=== PATIENT | male | born 1970 | race Caucasian/White ===

== ENCOUNTER 2023-02-09 20:43 | Inpatient (IN) ==
[2023-02-09] MEDS ORDERED: SODIUM CHLORIDE 0.9% 1000ML 1,000 ML IV ONE (22:01)
[2023-02-09] MEDS ORDERED: METOCLOPRAMIDE HCL INJ 5 MG/ML 2 ML VIAL IV STA (22:08)
[2023-02-09] MEDS ORDERED: diphenhydrAMINE 50 MG/ML VIAL IV STA (22:08)
--- NOTE | 2023-02-09 22:09 | Emergency Department Note ---
Impression & Plan Headache ADMIT ED Provider Note HPI: The patient is a 52-year-old gentleman who presents emergency department with a chief complaint of headache and fever earlier today. Patient states that throughout the day he has had progressively worsening headache, states that he had a fever at 1 point today to 103 Fahrenheit. Patient states he has a history of aseptic meningitis that was diagnosed in 2015, he states his symptoms feel similar to this episode. On arrival here to the ED the patient appears uncomfortable, he is afebrile, he does not have any focal deficits. ROS: - Per HPI Differential Diagnosis: Bacterial meningitis, viral meningitis, migraine co mplex, Lyme disease, Anaplasma infection, COVID-19 infection, influenza A infection, amongst other potential pathologies. *Outpatient medications and allergy history reviewed. *Pertinent external medical records reviewed. PE: General: Alert HEENT: Normocephalic, trachea midline, near full range of motion of the cervical spine is appreciated with some limitation with full flexion of the neck Eyes: Extraocular eye movement is intact, no scleral erythema Pulmonary: Clear to auscultation bilaterally, no wheezing Cardio: Regular rate and rhythm GI: Abdomen is soft to palpation : No suprapubic tenderness MSK: No evidence of trauma or malformation of the extremities, no edema Skin: No evidence of rash Neuro: Alert, no focal deficits Psychiatric: Cooperative scientific research associate: (As interpreted by myself): - An order was placed for continuous cardiac monitoring - Patient was noted to be in sinus rhythm with a rate of 70 LUMBAR PUNCTURE: Verbal consent was obtained from the patient following discussion of risk and benefits of the procedure. Patient position: Seated position with lumbar flexion Utilizing the bilateral ASIS as a landmark, L3/L4 interspace was identified, site was then prepped with antiseptic, and draped, utilizing sterile technique. Local anesthesia applied with 1% lidocaine without epinephrine, 3 cc total. Size 22G spinal needle was advanced at the identified interspace with stylet in place. Needle stylet was removed following needle advancement. Clear CSF was successfully obtained and collected in 4 separate sample tubes, approximately 1cc in each tube was collected. Needle stylette was then replaced and the spinal needle was gently withdrawn. Patient tolerated the procedure well. Interventions provided in ED: -IV Reglan, IV Benadryl, IV morphine, IV ceftriaxone, IV vancomycin, IV fluid bolus Medical Decision Making: Shortly after the patient arrived IV was established lab work ordered, patient was maintained on jack winder. Patient was ordered IV fluid bolus as well as IV Reglan and IV Benadryl for his symptoms. Lab work shows a leukocytosis of 12.01, hemoglobin is normal, platelet count is normal, CMP does not show any critical findings, procalcitonin is low. CT imaging of the head was obtained that does not show any evidence of any acute intracranial process. Lyme disease testing is negative, Anaplasma testing is negative. COVID-19 and influenza testing are both negative. On my reassessment patient still appears uncomfortable, he states his headache is improved but he still does have a headache. He was given a dose of IV morphine and shortly after this he stated his headache was "much better". I did discuss with the patient risk versus benefit of lumbar puncture at this time for further diagnostic value, following discussion with the patient and his at the bedside they would like to proceed with lumbar puncture, discussed risk and benefit and procedure was performed, please see procedure note for details. Patient tolerated the procedure well. While awaiting results of CSF values, CSF protein value did result elevated at 30.5, glucose level is normal at 57, I contacted the lab and results on cell differential are still pending as many white blood cell counts were noted per manager labor delivery. Manual differential is pending. I discussed this with the patient and his , given these findings in addition to the patient's headache and leukocytosis he will be treated prophylactically with vancomycin and ceftriaxone while awaiting the remainder of his CSF lab values and cultures. Patient is in agreement for admission at this time and initiation of prophylactic antibiotics. Case was discussed with the on-call hospitalist, Dr. Albert, who accepted the patient to the inpatient service for further management. Consultants: HospitalistDr. Albert Disposition discussion held by myself with: Patient and at bedside Diagnosis: 1. Headache, acute, not intractable 2. Fever by history 3. Neck stiffness, acute 4. Elevated CSF protein level Disposition: ADMIT Polo Yañez DO Emergency Medicine Past Med/Surg History Medical History (Updated 02/10/23 @ 02:28 by Polo Yañez DO) Allergic rhinitis Meningitis Tinnitus Surgical History No significant past surgical history Family History Other No pertinent family history Social History Smoking Status: Never smoker Tobacco Type: Cigarettes Hx Alcohol Use: Yes Preferred Language: Citizen Of [place] marital status: Current Living Situation: Spouse current occupational status: employed Feels Safe at Home: Yes Allergies Allergies Allergy/AdvReac Type Severity Reaction Status Date / Time No Known Allergies Allergy Unverified 02/09/23 20:55 Home Meds Home Medications Medication Instructions Recorded Confirmed No Known Home Medications 07/07/21 02/09/23 Results & Data (ED) Vital Signs Vital Signs - 24 hr 02/09/23 20:48 02/09/23 21:51 02/09/23 22:00 Temperature 37.0 C Temperature Source Temporal Artery Scan Pulse Rate 95 H 80 65 Pulse Rate from SpO2 Sensor 68 Respiratory Rate 18 18 Respiratory Effort / Characteristics Non-Labored Spontaneous Respiratory Depth Normal Respiratory Pattern Regular Blood Pressure 174/94 H 157/95 H Blood Pressure Mean 120 115 Blood Pressure Position Sitting Pulse Oximetry 96 94 Oxygen Delivery Method Room Air Room Air Sepsis Recent Fever Within 48 Hours Yes Sepsis New/Unexplained Change in Mental Status N/A Sepsis Action Taken by Nursing No Action Required Laboratory Data 02/09/23 21:50 02/09/23 21:50 Lab Results 02/09/23 02/09/23 02/09/23 Range/Units 21:50 21:50 21:50 WBC 12.01 H (4.8-10.8) K/ul RBC 5.27 (4.70-6.10) M/uL Hgb 16.9 (14.0-18.0) g/dl Hct 48.1 (42.0-52.0) % MCV 91.3 (80.0-100.0) fL MCH 32.1 (25.0-34.0) pg MCHC 35.1 (32.0-36.0) g/dL RDW Std Deviation 39.4 (36.4-46.3) fL RDW Coeff of Nichelle 11.9 (11.5-14.5) % Plt Count 233 (130-400) K/uL MPV 10.4 (9.4-12.4) fL Immature Gran % (Auto) 0.2 % Neut % (Auto) 85.4 % Lymph % (Auto) 9.7 % Pierce % (Auto) 4.3 % Eos % (Auto) 0.1 % Baso % (Auto) 0.3 % Neut # (Auto) 10.25 H (1.40-6.50) K/uL Lymph # (Auto) 1.17 L (1.20-3.40) K/uL Pierce # (Auto) 0.52 (0.11-0.59) K/uL Eos # (Auto) 0.01 (0.00-0.50) K/uL Baso # (Auto) 0.04 (0.00-0.20) K/uL Immature Gran # (Auto) 0.02 (0.01-0.20) K/uL Sodium 136 (136-145) mmol/L Potassium 4.0 (3.5-5.1) mmol/L Chloride 102 (98-107) mmol/L Carbon Dioxide 27 (21-32) mmol/L Anion Gap 7 (3-11) BUN 11 (6-23) mg/dl Creatinine 0.97 (0.6-1.4) mg/dl Est Cr Clr Drug Dosing 111.8 ml/min Est GFR ( Amer) 104.3 ml/min Est GFR (Non-Af Amer) 90.0 ml/min BUN/Creatinine Ratio 11.3 (10-20) Glucose 105 H (70-99(Fasting)) mg/dl Calcium 9.4 (8.6-10.3) mg/dl Total Bilirubin 1.7 H (0.2-1.0) mg/dl AST 19 (13-39) U/L ALT 18 (7-52) U/L Alkaline Phosphatase 65 (34-104) U/L Total Protein 7.9 (6.0-8.3) gm/dl Albumin 5.0 (3.4-5.0) gm/dl Globulin 2.9 (2.5-4.0) gm/dl Albumin/Globulin Ratio 1.7 (0.9-2) Procalcitonin (0-0.5) ng/ml Fluid Comment CSF Chemistry Tube # CSF Glucose (40-70) mg/dl CSF Total Protein (15-45) mg/dl Anaplasma Smear See Comment Babesia Smear See Comment Lyme Disease IgG Ab Cancelled Lyme Disease IgM Ab Cancelled SARS-CoV-2 (PCR) (Negative) Influenza Type A (PCR) (Neg) Influenza Type B (PCR) (Neg) RSV (RT-PCR) (Neg) 02/09/23 02/09/23 02/10/23 Range/Units 21:50 21:50 01:15 WBC (4.8-10.8) K/ul RBC (4.70-6.10) M/uL Hgb (14.0-18.0) g/dl Hct (42.0-52.0) % MCV (80.0-100.0) fL MCH (25.0-34.0) pg MCHC (32.0-36.0) g/dL RDW Std Deviation (36.4-46.3) fL RDW Coeff of Nichelle (11.5-14.5) % Plt Count (130-400) K/uL MPV (9.4-12.4) fL Immature Gran % (Auto) % Neut % (Auto) % Lymph % (Auto) % Pierce % (Auto) % Eos % (Auto) % Baso % (Auto) % Neut # (Auto) (1.40-6.50) K/uL Lymph # (Auto) (1.20-3.40) K/uL Pierce # (Auto) (0.11-0.59) K/uL Eos # (Auto) (0.00-0.50) K/uL Baso # (Auto) (0.00-0.20) K/uL Immature Gran # (Auto) (0.01-0.20) K/uL Sodium (136-145) mmol/L Potassium (3.5-5.1) mmol/L Chloride (98-107) mmol/L Carbon Dioxide (21-32) mmol/L Anion Gap (3-11) BUN (6-23) mg/dl Creatinine (0.6-1.4) mg/dl Est Cr Clr Drug Dosing ml/min Est GFR ( Amer) ml/min Est GFR (Non-Af Amer) ml/min BUN/Creatinine Ratio (10-20) Glucose (70-99(Fasting)) mg/dl Calcium (8.6-10.3) mg/dl Total Bilirubin (0.2-1.0) mg/dl AST (13-39) U/L ALT (7-52) U/L Alkaline Phosphatase (34-104) U/L Total Protein (6.0-8.3) gm/dl Albumin (3.4-5.0) gm/dl Globulin (2.5-4.0) gm/dl Albumin/Globulin Ratio (0.9-2) Procalcitonin < 0.05 (0-0.5) ng/ml Fluid Comment CSF Chemistry Tube # CSF Glucose (40-70) mg/dl CSF Total Protein (15-45) mg/dl Anaplasma Smear Babesia Smear Lyme Disease IgG Ab Negative Lyme Disease IgM Ab Negative SARS-CoV-2 (PCR) NEGATIVE (Negative) Influenza Type A (PCR) Negative (Neg) Influenza Type B (PCR) Negative (Neg) RSV (RT-PCR) Negative (Neg) 02/10/23 Range/Units 01:15 WBC (4.8-10.8) K/ul RBC (4.70-6.10) M/uL Hgb (14.0-18.0) g/dl Hct (42.0-52.0) % MCV (80.0-100.0) fL MCH (25.0-34.0) pg MCHC (32.0-36.0) g/dL RDW Std Deviation (36.4-46.3) fL RDW Coeff of Nichelle (11.5-14.5) % Plt Count (130-400) K/uL MPV (9.4-12.4) fL Immature Gran % (Auto) % Neut % (Auto) % Lymph % (Auto) % Pierce % (Auto) % Eos % (Auto) % Baso % (Auto) % Neut # (Auto) (1.40-6.50) K/uL Lymph # (Auto) (1.20-3.40) K/uL Pierce # (Auto) (0.11-0.59) K/uL Eos # (Auto) (0.00-0.50) K/uL Baso # (Auto) (0.00-0.20) K/uL Immature Gran # (Auto) (0.01-0.20) K/uL Sodium (136-145) mmol/L Potassium (3.5-5.1) mmol/L Chloride (98-107) mmol/L Carbon Dioxide (21-32) mmol/L Anion Gap (3-11) BUN (6-23) mg/dl Creatinine (0.6-1.4) mg/dl Est Cr Clr Drug Dosing ml/min Est GFR ( Amer) ml/min Est GFR (Non-Af Amer) ml/min BUN/Creatinine Ratio (10-20) Glucose (70-99(Fasting)) mg/dl Calcium (8.6-10.3) mg/dl Total Bilirubin (0.2-1.0) mg/dl AST (13-39) U/L ALT (7-52) U/L Alkaline Phosphatase (34-104) U/L Total Protein (6.0-8.3) gm/dl Albumin (3.4-5.0) gm/dl Globulin (2.5-4.0) gm/dl Albumin/Globulin Ratio (0.9-2) Procalcitonin (0-0.5) ng/ml Fluid Comment CSF Chemistry Tube # 1 CSF Glucose 57 (40-70) mg/dl CSF Total Protein 130.5 H (15-45) mg/dl Anaplasma Smear Babesia Smear Lyme Disease IgG Ab Lyme Disease IgM Ab SARS-CoV-2 (PCR) (Negative) Influenza Type A (PCR) (Neg) Influenza Type B (PCR) (Neg) RSV (RT-PCR) (Neg) Administered Medications Discontinued Medications Diphenhydramine HCl (Diphenhydramine 50 Mg/Ml Vial) 25 mg IV NOW STA Stop: 02/09/23 22:09 Last Admin: 02/09/23 22:26 Dose: 25 mg Documented By: SHER Sodium Chloride (Nss 1000ml) 1,000 mls @ 999 mls/hr IV .Q1H1M ONE Stop: 02/09/23 23:01 Last Admin: 02/09/23 22:26 Dose: 999 mls/hr Documented By: SHER Metoclopramide HCl (Metoclopramide Hcl Inj 5 Mg/Ml 2 Ml Vial) 10 mg IV NOW STA Stop: 02/09/23 22:09 Last Admin: 02/09/23 22:26 Dose: 10 mg Documented By: SHER Morphine Sulfate (Morphine Sulfate 4 Mg/Ml 1 Ml Carp\\Vial) 4 mg IV NOW STA Stop: 02/09/23 23:19 Last Admin: 02/09/23 23:26 Dose: 4 mg Documented By: EMILIE Imaging Data Radiologist's Impression: Head CT 02/09/23 22:08 Exam(s): CT HEAD Without Contrast EXAM: CT Head Without Intravenous Contrast CLINICAL HISTORY: Reason for exam: DOMÍNGUEZ. TECHNIQUE: Axial computed tomography images of the head/brain without intravenous contrast. CTDI is 37.01 mGy and DLP is 625.8 mGy-cm. Automated exposure control was utilized for the study. A dose lowering technique was utilized adhering to the principles of ALARA. COMPARISON: No relevant prior studies available. FINDINGS: No acute intracranial hemorrhage. No midline shift or mass effect. The territorial molina-white matter differentiation is maintained throughout. The ventricles and sulci are commensurate with age. The visualized orbits appear grossly unremarkable. The calvarium is intact. The visualized paranasal sinuses and mastoid air cells are grossly clear. IMPRESSION: No acute intracranial hemorrhage, midline shift, or mass effect. Electronically signed by: Carlos Pastor MD 02/09/23 23:28 PM Discharge Plan Visit Data Chief Complaint: Illness Stated Complaint: FEVER,HEADACHE,STIFF NECK,BALANCE ISSUES, ED Provider: Polo Yañez Discharge Problem: Headache Forms Stand Alone Forms: My [facility] [employer] Prescriptions Prescriptions: No Action No Known Home Medications Referrals Referrals: Sivakumar Obrien DO [Primary Care Provider] -
[2023-02-09 22:36] LABS: Basophils # (auto) 0.04 K/uL (0.00-0.20); Basophils % (auto) 0.3 %; Eosinophils # (auto) 0.01 K/uL (0.00-0.50); Eosinophils % (auto) 0.1 %; Hematocrit (blood only) 48.1 % (42.0-52.0); Hemoglobin 16.9 g/dl (14.0-18.0); Immature Granulocytes # (auto) 0.02 K/uL (0.01-0.20); Immature Granulocytes % (auto) 0.2 %; Lymphocytes # (auto) 1.17 K/uL (1.20-3.40); Lymphocytes % (auto) 9.7 %; Mean Corpuscular Hemoglobin 32.1 pg (25.0-34.0); Mean Corpuscular Hgb Conc 35.1 g/dL (32.0-36.0); Mean Corpuscular Volume 91.3 fL (80.0-100.0); Mean Platelet Volume 10.4 fL (9.4-12.4); Monocytes # (auto) 0.52 K/uL (0.11-0.59); Monocytes % (auto) 4.3 %; Neutrophils # (auto) 10.25 K/uL (1.40-6.50); Neutrophils % (auto) 85.4 %; Platelet Count 233 K/uL (130-400); RDW Coefficient of Variation 11.9 % (11.5-14.5); RDW Standard Deviation 39.4 fL (36.4-46.3); Red Blood Count 5.27 M/uL (4.70-6.10); White Blood Count 12.01 K/ul (4.8-10.8)
[2023-02-09 22:43] LABS: Albumin Globulin Ratio 1.7 (0.9-2); BUN Creatinine Ratio 11.3 (10-20); Bilirubin,Total 1.7 mg/dl (0.2-1.0); Calcium 9.4 mg/dl (8.6-10.3); Creatinine Clr Calc Pharmacy 111.8 ml/min; Est GFR (African American) 104.3 ml/min; Globulin 2.9 gm/dl (2.5-4.0); Total Protein 7.9 gm/dl (6.0-8.3)
[2023-02-09 22:48] LABS: Influenza A virus by PCR Negative (Neg); Influenza B virus by PCR Negative (Neg); RSV by PCR Negative (Neg); SARS CoV2 RNA(COVID-19) Ceph NEGATIVE (Negative)
[2023-02-09 22:54] LABS: Procalcitonin < 0.05 ng/ml (0-0.5)
[2023-02-09 23:02] LABS: Lyme Ab IgG w/WB Rflx Negative (Negative); Lyme Ab IgM w/WB Rflx Negative (Negative)
[2023-02-09] MEDS ORDERED: MoRPHine SULFATE 4 MG/ML 1 ML CARP\\VIAL IV STA (23:18)
--- NOTE | 2023-02-09 23:28 | CT Scan Report ---
Exam(s): CT HEAD Without Contrast EXAM: CT Head Without Intravenous Contrast CLINICAL HISTORY: Reason for exam: DOMÍNGUEZ. TECHNIQUE: Axial computed tomography images of the head/brain without intravenous contrast. CTDI is 37.01 mGy and DLP is 625.8 mGy-cm. Automated exposure control was utilized for the study. A dose lowering technique was utilized adhering to the principles of ALARA. COMPARISON: No relevant prior studies available. FINDINGS: No acute intracranial hemorrhage. No midline shift or mass effect. The territorial molina-white matter differentiation is maintained throughout. The ventricles and sulci are commensurate with age. The visualized orbits appear grossly unremarkable. The calvarium is intact. The visualized paranasal sinuses and mastoid air cells are grossly clear. IMPRESSION: No acute intracranial hemorrhage, midline shift, or mass effect. Electronically signed by: Carlos Pastor MD 02/09/23 23:28 PM
[2023-02-10 01:52] LABS: Total Protein CSF 130.5 mg/dl (15-45)
[2023-02-10] MEDS ORDERED: cefTRIAXone SODIUM 2,000 MG/70 ML BAG IV STA (02:16)
[2023-02-10] MEDS ORDERED: VANCOMYCIN CONSULT ACTIVE PRN ×2 (02:19→13:50)
[2023-02-10] MEDS ORDERED: VANCOMYCIN HCL 2,000 MG in SODIUM CHLORIDE 0.9% 500 ML IV ONE (02:19)
[2023-02-10 02:32] LABS: Appearance CSF Clear; CSF Count Tube # 3; CSF Xanthrochromic No xanthochromia; Color CSF Colorless
[2023-02-10 02:50] LABS: Mononuclear WBC CSF Manual 92 %
[2023-02-10 02:51] LABS: Polynuclear WBC CSF Manual 8 %
--- NOTE | 2023-02-10 02:55 | History & Physical Report ---
Date of Service February 10, 2023 Assessment & Plan (1) Meningitis: Plan: Recurrent HSV meningitis Possible sepsis secondary to above Medical telemetry IV Acyclovir ID consult Re: Recurrent HSV meningitis DVT prophylaxis. Lovenox subcu Full code Text document was generated using [employer] voice recognition software. It may contain grammatical or spelling errors. Kindly contact undersigned for clarification of any documentation item in question. History of Present Illness Chief Complaint: Headache, body aches Primary Care Provider: Sivakumar Obrien DO History obtained from patient, family, and records. Medical history significant for HSV-2 infection. Last confinement 2014 for aseptic meningitis. HSV-2 DNA detected in CSF. Patient completed Acyclovir course following ID recommendation. 2 nights ago, patient noted generalized joint achiness. No chest pain, no SOB, no cough. No rashes noted. No known sick contacts. 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 Patient woke up yesterday morning with a pounding headache. Worsening symptoms and some neck pain throughout the day. Patient had to go home from work. Temperature elevation of 103 at home last night. Dizziness described as lightheadedness. No ear discharge. No recent genital HSV attacks. IV ceftriaxone administered at the ER after LP done. 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 Allergies Allergy/AdvReac Type Severity Reaction Status Date / Time No Known Allergies Allergy Unverified 02/09/23 20:55 Home Medications Medication Instructions Recorded Confirmed Type No Known Home Medications 07/07/21 02/09/23 History Past Med/Surg History Medical History (Updated 02/10/23 @ 04:28 by Robert Albert MD) Allergic rhinitis Meningitis Tinnitus Surgical History No significant past surgical history Family History Other No pertinent family history Social History Smoking Status: Never smoker Tobacco Type: Cigarettes Hx Alcohol Use: Yes Preferred Language: [place] marital status: Current Living Situation: Spouse current occupational status: employed Feels Safe at Home: Yes Review of Systems Review of Systems: As per HPI, all other systems reviewed and negative Physical Exam 2 Physical Exam: GENERAL: Comfortable, pleasant, obese, no respiratory distress SKIN: Normal color, warm HEENT: Alopecia, pink palpebral conjunctivae, no ptosis, dry buccal mucosa NECK : Limited neck flexion, minimal cervical tenderness CHEST : CTA, no tenderness HEART : RRR, no obvious murmurs ABDOMEN: Some distention, nontender EXTREMITIES : No LE swelling/tenderness, no other conspicuous deformities noted NEUROLOGIC : Coherent, no facial asymmetry, no other gross focality Results & Data Results & Data Vital Signs (Past 12 Hours) Vital Signs Temp Pulse Resp BP Pulse Ox O2 Del Method 02/10/23 02:30 91 02/10/23 02:20 94 02/10/23 02:10 93 02/10/23 02:00 93 02/10/23 01:50 91 02/10/23 01:40 93 02/10/23 01:30 93 02/10/23 01:21 98 02/10/23 00:30 95 02/10/23 00:20 95 02/10/23 00:10 94 02/10/23 00:00 95 02/09/23 23:50 95 02/09/23 23:40 94 02/09/23 23:30 95 02/09/23 23:27 97 02/09/23 22:00 65 18 157/95 H 94 Room Air 02/09/23 21:51 80 02/09/23 20:48 37.0 C 95 H 18 174/94 H 96 Room Air Laboratory Results Laboratory Results WBC 12.01 K/ul (4.8-10.8) H 02/09/23 21:50 RBC 5.27 M/uL (4.70-6.10) 02/09/23 21:50 Hgb 16.9 g/dl (14.0-18.0) 02/09/23 21:50 Hct 48.1 % (42.0-52.0) 02/09/23 21:50 MCV 91.3 fL (80.0-100.0) 02/09/23 21:50 MCH 32.1 pg (25.0-34.0) 02/09/23 21:50 MCHC 35.1 g/dL (32.0-36.0) 02/09/23 21:50 RDW Std Deviation 39.4 fL (36.4-46.3) 02/09/23 21:50 RDW Coeff of Nichelle 11.9 % (11.5-14.5) 02/09/23 21:50 Plt Count 233 K/uL (130-400) 02/09/23 21:50 MPV 10.4 fL (9.4-12.4) 02/09/23 21:50 Immature Gran % (Auto) 0.2 % 02/09/23 21:50 Neut % (Auto) 85.4 % 02/09/23 21:50 Lymph % (Auto) 9.7 % 02/09/23 21:50 Coke % (Auto) 4.3 % 02/09/23 21:50 Eos % (Auto) 0.1 % 02/09/23 21:50 Baso % (Auto) 0.3 % 02/09/23 21:50 Neut # (Auto) 10.25 K/uL (1.40-6.50) H 02/09/23 21:50 Lymph # (Auto) 1.17 K/uL (1.20-3.40) L 02/09/23 21:50 Coke # (Auto) 0.52 K/uL (0.11-0.59) 02/09/23 21:50 Eos # (Auto) 0.01 K/uL (0.00-0.50) 02/09/23 21:50 Baso # (Auto) 0.04 K/uL (0.00-0.20) 02/09/23 21:50 Immature Gran # (Auto) 0.02 K/uL (0.01-0.20) 02/09/23 21:50 Sodium 136 mmol/L (136-145) 02/09/23 21:50 Potassium 4.0 mmol/L (3.5-5.1) 02/09/23 21:50 Chloride 102 mmol/L (98-107) 02/09/23 21:50 Carbon Dioxide 27 mmol/L (21-32) 02/09/23 21:50 Anion Gap 7 (3-11) 02/09/23 21:50 BUN 11 mg/dl (6-23) 02/09/23 21:50 Creatinine 0.97 mg/dl (0.6-1.4) 02/09/23 21:50 Est Cr Clr Drug Dosing 111.8 ml/min 02/09/23 21:50 Est GFR ( Amer) 104.3 ml/min 02/09/23 21:50 Est GFR (Non-Af Amer) 90.0 ml/min 02/09/23 21:50 BUN/Creatinine Ratio 11.3 (10-20) 02/09/23 21:50 Glucose 105 mg/dl (70-99(Fasting)) H 02/09/23 21:50 Calcium 9.4 mg/dl (8.6-10.3) 02/09/23 21:50 Total Bilirubin 1.7 mg/dl (0.2-1.0) H 02/09/23 21:50 AST 19 U/L (13-39) 02/09/23 21:50 ALT 18 U/L (7-52) 02/09/23 21:50 Alkaline Phosphatase 65 U/L (34-104) 02/09/23 21:50 Total Protein 7.9 gm/dl (6.0-8.3) 02/09/23 21:50 Albumin 5.0 gm/dl (3.4-5.0) 02/09/23 21:50 Globulin 2.9 gm/dl (2.5-4.0) 02/09/23 21:50 Albumin/Globulin Ratio 1.7 (0.9-2) 02/09/23 21:50 Procalcitonin < 0.05 ng/ml (0-0.5) 02/09/23 21:50 Fluid Comment 02/10/23 01:15 CSF Appearance Clear 02/10/23 01:15 CSF Color Colorless 02/10/23 01:15 Xanthrochromic No xanthochromia 02/10/23 01:15 CSF WBC 373 (0-5) H* 02/10/23 01:15 CSF RBC 2 (0-) 02/10/23 01:15 CSF Cell Count Tube # 3 02/10/23 01:15 CSF Mononuclear WBCs % 92 % 02/10/23 01:15 CSF Polynuclear WBCs % 8 % 02/10/23 01:15 CSF Chemistry Tube # 1 02/10/23 01:15 CSF Glucose 57 mg/dl (40-70) 02/10/23 01:15 CSF Total Protein 130.5 mg/dl (15-45) H 02/10/23 01:15 Anaplasma Smear See Comment 02/09/23 21:50 Babesia Smear See Comment 02/09/23 21:50 Lyme Disease IgG Ab Cancelled 02/09/23 21:50 Lyme Disease IgG Ab Negative (Negative) 02/09/23 21:50 Lyme Disease IgM Ab Cancelled 02/09/23 21:50 Lyme Disease IgM Ab Negative (Negative) 02/09/23 21:50 SARS-CoV-2 (PCR) NEGATIVE (Negative) 02/09/23 21:50 Influenza Type A (PCR) Negative (Neg) 02/09/23 21:50 Influenza Type B (PCR) Negative (Neg) 02/09/23 21:50 RSV (RT-PCR) Negative (Neg) 02/09/23 21:[address] 02/09/23 22:08 Exam(s): CT HEAD Without Contrast EXAM: CT Head Without Intravenous Contrast CLINICAL HISTORY: Reason for exam: DOMÍNGUEZ. TECHNIQUE: Axial computed tomography images of the head/brain without intravenous contrast. CTDI is 37.01 mGy and DLP is 625.8 mGy-cm. Automated exposure control was utilized for the study. A dose lowering technique was utilized adhering to the principles of ALARA. COMPARISON: No relevant prior studies available. FINDINGS: No acute intracranial hemorrhage. No midline shift or mass effect. The territorial molina-white matter differentiation is maintained throughout. The ventricles and sulci are commensurate with age. The visualized orbits appear grossly unremarkable. The calvarium is intact. The visualized paranasal sinuses and mastoid air cells are grossly clear. IMPRESSION: No acute intracranial hemorrhage, midline shift, or mass effect. Electronically signed by: Carlos Pastor MD 02/09/23 23:28 PM
[2023-02-10 03:03] LABS: Cryptococcus neoformans/ga PCR Not Detected (NotDetected); Cytomegalovirus PCR Not Detected (NotDetected); Enterovirus PCR Not Detected (NotDetected); Escherichia coli K1 PCR Not Detected (NotDetected); Haemophilius influenzae PCR Not Detected (NotDetected); Herpes Simplex Virus 1 PCR Not Detected (NotDetected); Human Herpes Virus 6 PCR Not Detected (NotDetected); Human Parechovirus PCR Not Detected (NotDetected); Listeria monocytogenes PCR Not Detected (NotDetected); Neisseria meningitidis PCR Not Detected (NotDetected); Streptococcus agalactiae PCR Not Detected (NotDetected); Streptococcus pneumoniae PCR Not Detected (NotDetected); Varicella Zoster Virus PCR Not Detected (NotDetected)
[2023-02-10] MEDS ORDERED: PROMETHAZINE HCL 12.5 MG in SODIUM CHLORIDE 0.9% 50 ML IV PRN (03:05)
[2023-02-10] MEDS ORDERED: LORazepam 0.5 MG TAB PO PRN (03:05)
[2023-02-10 03:06] LABS: Herpes Simplex Virus 2 PCR DETECTED (NotDetected)
[2023-02-10] MEDS ORDERED: ACYCLOVIR SOD 900 MG in DEXTROSE 5% 250 ML IV STA (03:28)
[2023-02-10] MEDS ORDERED: SODIUM CHLORIDE 0.9% 1000ML 1,000 ML IV STA (03:31)
[2023-02-10] MEDS: ACETAMINOPHEN 325 MG TAB PO PRN (04:42)
[2023-02-10 06:34] LABS: Basophils # (auto) 0.03 K/uL (0.00-0.20); Basophils % (auto) 0.3 %; Eosinophils # (auto) 0.01 K/uL (0.00-0.50); Eosinophils % (auto) 0.1 %; Hematocrit (blood only) 43.6 % (42.0-52.0); Hemoglobin 15.5 g/dl (14.0-18.0); Immature Granulocytes # (auto) 0.03 K/uL (0.01-0.20); Immature Granulocytes % (auto) 0.3 %; Lymphocytes # (auto) 1.25 K/uL (1.20-3.40); Lymphocytes % (auto) 11.2 %; Mean Corpuscular Hemoglobin 32.3 pg (25.0-34.0); Mean Corpuscular Hgb Conc 35.6 g/dL (32.0-36.0); Mean Corpuscular Volume 90.8 fL (80.0-100.0); Mean Platelet Volume 10.4 fL (9.4-12.4); Monocytes # (auto) 0.76 K/uL (0.11-0.59); Monocytes % (auto) 6.8 %; Neutrophils # (auto) 9.13 K/uL (1.40-6.50); Neutrophils % (auto) 81.3 %; Platelet Count 206 K/uL (130-400); RDW Coefficient of Variation 11.7 % (11.5-14.5); RDW Standard Deviation 38.7 fL (36.4-46.3); White Blood Count 11.21 K/ul (4.8-10.8)
[2023-02-10 06:57] LABS: BUN Creatinine Ratio 11.8 (10-20); Calcium 8.6 mg/dl (8.6-10.3); Creatinine Clr Calc Pharmacy 127.6 ml/min; Est GFR (African American) 116.9 ml/min; Est GFR (Non-African American) 100.9 ml/min; Potassium 3.5 mmol/L (3.5-5.1)
[2023-02-10] MEDS: ENOXAPARIN INJ 40 MG/0.4 ML SYR SQ SCH (10:05)
[2023-02-10] MEDS: KETOROLAC TROMETHAMINE 15 MG/ML VIAL IV PRN ×3 (10:29→22:40)
--- NOTE | 2023-02-10 11:59 | Infectious Disease Consult ---
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 For the duration of the visit, the provider was performing the assessment from a different facility than the patient. This includesuse of bluetooth stethoscope forauscultationperformed by the telepresenter that the telemedicine provider can hear if described in the physical exam. Telecommunications Analyst contact information: Please call [facility] . (Phone Number For Physician Use Only) History of Present Illness Reason for Consultation: Recurrent meningitis Attending Physician: Gage Jesus MD History of Present Illness 52 y/o M who presented to [facility]'s emergency department with headache and fever. Patient states that throughout the day he has had progressively worsening headache and with a fever of up to 103 Fahrenheit. Patient states he has a history of aseptic meningitis diagnosed in 2014, A LP has been done and results are pending he has been started on acyclovir(received one dose of ceftriaxone and vancomycin ) Allergies Allergy/AdvReac Type Severity Reaction Status Date / Time No Known Allergies Allergy Unverified 02/09/23 20:55 Home Medications Medication Instructions Recorded Confirmed Type No Known Home Medications 07/07/21 02/09/23 History Patient History Medical History (Updated 02/10/23 @ 04:28 by Robert Albert MD) Allergic rhinitis Meningitis Tinnitus Surgical History No significant past surgical history Family History Other No pertinent family history Social History Smoking Status: Never smoker Tobacco Type: Cigarettes Second Hand Exposure: No; Do You Dip or Chew Tobacco: No; Tobacco Cessation Education Requested by Patient: No Hx Alcohol Use: Yes Alcohol type: beer and hard liquor Hx Substance Use: No Preferred Language: Lebanese Ekg Monitor Tech Required: No Beliefs That Will Affect Care: None marital status: Current Living Situation: Spouse current occupational status: employed Other Information That Helps Us Care for You: No Feels Safe at Home: Yes Safety Concerns: Feels Safe At This Time Assistive Devices: None Results & Data Vital Signs (Past 12 Hours) Vital Signs Pulse Resp BP Pulse Ox 02/10/23 10:00 60 17 94 02/10/23 10:00 136/78 02/10/23 09:07 137/77 02/10/23 09:07 66 17 94 02/10/23 08:00 61 17 94 02/10/23 08:00 113/71 02/10/23 07:18 74 19 95 02/10/23 07:18 126/64 02/10/23 07:00 65 20 93 02/10/23 07:13 63 02/10/23 06:30 66 20 91 02/10/23 06:20 70 19 94 02/10/23 06:10 68 22 91 02/10/23 06:00 66 20 92 02/10/23 05:50 65 21 90 02/10/23 05:40 66 21 91 02/10/23 05:30 71 16 98 02/10/23 05:20 69 21 94 02/10/23 05:10 69 19 95 02/10/23 05:22 73 02/10/23 05:00 64 18 95 02/10/23 04:50 63 18 94 02/10/23 04:41 79 15 95 02/10/23 04:30 93 02/10/23 04:20 97 02/10/23 04:10 94 02/10/23 04:00 95 02/10/23 03:50 96 02/10/23 03:40 98 02/10/23 03:30 96 02/10/23 03:20 93 02/10/23 03:10 93 02/10/23 03:00 96 02/10/23 02:50 96 02/10/23 02:40 93 02/10/23 02:30 91 02/10/23 02:20 94 02/10/23 02:10 93 02/10/23 02:00 93 02/10/23 01:50 91 02/10/23 01:40 93 02/10/23 01:30 93 02/10/23 01:21 98 02/10/23 00:30 95 02/10/23 00:20 95 02/10/23 00:10 94 02/10/23 00:00 95
[2023-02-10] MEDS: ACYCLOVIR SOD 900 MG in DEXTROSE 5% 250 ML IV SCH ×2 (12:17→20:45)
--- NOTE | 2023-02-10 13:51 | Communication Note ---
Date of Service: February 10, 2023 Patient seen and examined at bedside. 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 He is being managed for the following: Recurrent HSV meningitis: LP done before Rocephin administration in the ED which came back positive for HSV-2. Follow-up on the culture results. Patient is started on acyclovir, reports improving symptoms. No more headache. ID consult placed--recommends ampicillin/vancomycin/ceftriaxone until cultures finalized, recommends continuation with acyclovir. DVT prophylaxis: Lovenox subcu Full code Patient's was updated at bedside. On examination: On room air, no BLE edema, heart/lung/abdomen examination fairly WNL. For detailed information on the patient, refer to today's H&P note.
[2023-02-10] MEDS ORDERED: cefTRIAXone SODIUM 2,000 MG in DEXTROSE 5% 50 ML IV SCH (14:00)
[2023-02-10] MEDS ORDERED: AMPICILLIN 2,000 MG in 0.9 % SODIUM CHLORIDE 100 ML IV SCH (14:00)
[2023-02-10] MEDS ORDERED: VANCOMYCIN HCL 2,000 MG in SODIUM CHLORIDE 0.9% 500 ML IV STA (14:13)
[2023-02-10] MEDS ORDERED: oxyCODONE HCL IR 5 MG TAB (IMMEDIATE RELEASE) PO STA (17:32)
[2023-02-10] MEDS: IBUPROFEN 200 MG TAB PO PRN (18:23)
[2023-02-11] MEDS: IBUPROFEN 200 MG TAB PO PRN ×3 (01:08→15:37)
[2023-02-11] MEDS: ACYCLOVIR SOD 900 MG in DEXTROSE 5% 250 ML IV SCH ×3 (05:04→20:34)
[2023-02-11 07:10] LABS: Hematocrit (blood only) 43.4 % (42.0-52.0); Hemoglobin 15.9 g/dl (14.0-18.0); Mean Corpuscular Hemoglobin 33.1 pg (25.0-34.0); Mean Corpuscular Hgb Conc 36.6 g/dL (32.0-36.0); Mean Corpuscular Volume 90.2 fL (80.0-100.0); Mean Platelet Volume 10.6 fL (9.4-12.4); Platelet Count 208 K/uL (130-400); RDW Coefficient of Variation 11.8 % (11.5-14.5); RDW Standard Deviation 38.7 fL (36.4-46.3); Red Blood Count 4.81 M/uL (4.70-6.10); White Blood Count 6.55 K/ul (4.8-10.8)
[2023-02-11 07:46] LABS: BUN Creatinine Ratio 15.6 (10-20); Calcium 8.8 mg/dl (8.6-10.3); Creatinine Clr Calc Pharmacy 121.6 ml/min; Est GFR (African American) 114.2 ml/min; Est GFR (Non-African American) 98.5 ml/min; Magnesium 2.2 mg/dl (1.7-2.4); Phosphorus 2.8 mg/dl (2.5-4.9)
[2023-02-11] MEDS: ADVANCED PROBIOTIC 1250 MG CAPSULE PO SCH (08:36)
[2023-02-11] MEDS: ENOXAPARIN INJ 40 MG/0.4 ML SYR SQ SCH (08:36)
--- NOTE | 2023-02-11 15:44 | Hospitalist Progress Note ---
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 He is being managed for the following: Recurrent HSV meningitis:LP done before Rocephin administration in the ED which came back positive for HSV-2. Follow-up on the culture results. Patient is started on acyclovir 02/10, reports improving symptoms. Had headache yesterday evening, continue symptomatic management. ID consult placed--recommends continuation with acyclovir. Await further recommendation. DVT prophylaxis:Lovenox subcu Full code Patient provided with information on viral meningitis. Disposition: Pending clearance from ID. Admission and Anticipated Discharge Date Admission Date: February 10, 2023 Subjective Patient is seen and examined at bedside as a follow-up of recurrent HSV meningitis. Patient was lying in bed, on room air, NAD, reports having headache since yesterday afternoon until midnight last night, continue with symptomatic management, denies any visual changes or any weakness. Reports eating okay in the morning. Denies any chest pain/fever/palpitations/belly pain. Physical Exam Physical Exam: GENERAL: Alert and oriented x3. NAD, on RA. HEENT: No pallor, no icterus. Pupils equal, round and reactive to light. Oral mucosa moist. NECK: No JVD, no neck masses. HEART: S1 and S2 heard. Regular rate and rhythm. No murmur, no gallop. RESPIRATORY SYSTEM: Normal AP diameter. No accessory muscle use. No wheezing, no crackles. ABDOMEN: Soft, bowel sounds present, nontender, no distention. CENTRAL NERVOUS SYSTEM: No facial droop. Speech is clear. Obeys simple commands. Moves extremities. EXTREMITIES: No edema, no erythema seen. Results & Data Results & Data Vital Signs (Past 12 Hours) Vital Signs Temp Pulse Pulse Resp BP Pulse Ox O2 Del Method 02/11/23 08:00 52 L 02/11/23 15:19 37.0 C 66 16 144/78 H 94 Room Air 02/11/23 11:38 37.0 C 70 16 137/85 95 Room Air 02/11/23 08:31 36.7 C 59 L 16 129/85 94 Room Air
[2023-02-11] MEDS: KETOROLAC TROMETHAMINE 15 MG/ML VIAL IV PRN (17:17)
[2023-02-11] MEDS: ACETAMINOPHEN 325 MG TAB PO PRN (20:34)
[2023-02-12] MEDS: ACYCLOVIR SOD 900 MG in DEXTROSE 5% 250 ML IV SCH ×3 (04:50→20:19)
[2023-02-12] MEDS: KETOROLAC TROMETHAMINE 15 MG/ML VIAL IV PRN (04:50)
[2023-02-12 08:05] LABS: Hematocrit (blood only) 44.3 % (42.0-52.0); Hemoglobin 15.8 g/dl (14.0-18.0); Mean Corpuscular Hemoglobin 31.9 pg (25.0-34.0); Mean Corpuscular Hgb Conc 35.7 g/dL (32.0-36.0); Mean Corpuscular Volume 89.3 fL (80.0-100.0); Mean Platelet Volume 10.5 fL (9.4-12.4); Platelet Count 199 K/uL (130-400); RDW Coefficient of Variation 11.8 % (11.5-14.5); RDW Standard Deviation 38.1 fL (36.4-46.3); Red Blood Count 4.96 M/uL (4.70-6.10); White Blood Count 6.43 K/ul (4.8-10.8)
[2023-02-12 08:34] LABS: BUN Creatinine Ratio 20.9 (10-20); Calcium 9.1 mg/dl (8.6-10.3); Creatinine Clr Calc Pharmacy 127.3 ml/min; Est GFR (African American) 116.4 ml/min; Est GFR (Non-African American) 100.4 ml/min; Magnesium 2.2 mg/dl (1.7-2.4); Phosphorus 3.1 mg/dl (2.5-4.9); Potassium 4.2 mmol/L (3.5-5.1)
[2023-02-12] MEDS: ADVANCED PROBIOTIC 1250 MG CAPSULE PO SCH (09:10)
[2023-02-12] MEDS: ENOXAPARIN INJ 40 MG/0.4 ML SYR SQ SCH (09:10)
--- NOTE | 2023-02-12 14:22 | Hospitalist Progress Note ---
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 He is being managed for the following: Recurrent HSV meningitis:LP done before Rocephin administration in the ED which came back positive for HSV-2. Follow-up on the culture results - negative. Patient is started on acyclovir 02/10, reports improving symptoms. Has headache - improving, requiring freq pain meds, continue symptomatic management. ID consult placed--recommends continuation with acyclovir. Await further recommendation. DVT prophylaxis:Lovenox subcu Full code Patient provided with information on viral meningitis. Disposition: Pending clearance from ID. Admission and Anticipated Discharge Date Admission Date: February 10, 2023 Subjective Patient is seen and examined at bedside as a follow-up of recurrent HSV meningitis. Patient was lying in bed, on room air, NAD, reports improving headache but still requiring frequent pain meds for headache, reports finally being able to sleep well last night, continue with symptomatic management of headache, denies any visual changes or any weakness. Reports eating okay in the morning. Denies any chest pain/fever/palpitations/belly pain. Physical Exam Physical Exam: GENERAL: Alert and oriented x3. NAD, on RA. HEENT: No pallor, no icterus. Pupils equal, round and reactive to light. Oral mucosa moist. NECK: No JVD, no neck masses. HEART: S1 and S2 heard. Regular rate and rhythm. No murmur, no gallop. RESPIRATORY SYSTEM: Normal AP diameter. No accessory muscle use. No wheezing, no crackles. ABDOMEN: Soft, bowel sounds present, nontender, no distention. CENTRAL NERVOUS SYSTEM: No facial droop. Speech is clear. Obeys simple commands. Moves extremities. EXTREMITIES: No edema, no erythema seen. Results & Data Results & Data Vital Signs (Past 12 Hours) Vital Signs Temp Pulse Pulse Resp BP Pulse Ox O2 Del Method 02/12/23 12:07 36.9 C 78 18 128/82 96 Room Air 02/12/23 07:39 36.6 C 78 16 134/90 96 Room Air 02/12/23 07:34 59 L 02/12/23 02:37 36.5 C 67 18 146/85 H 95 Room Air
[2023-02-13] MEDS: ACYCLOVIR SOD 900 MG in DEXTROSE 5% 250 ML IV SCH ×2 (04:14→11:52)
[2023-02-13] MEDS: ADVANCED PROBIOTIC 1250 MG CAPSULE PO SCH (08:16)
[2023-02-13] MEDS: ENOXAPARIN INJ 40 MG/0.4 ML SYR SQ SCH (08:16)
--- NOTE | 2023-02-13 13:17 | Discharge Summary ---
Date of Service February 13, 2023 Admission HPI Per Admitting Provider History obtained from patient, family, and records. Medical history significant for HSV-2 infection. Last confinement 2014 for aseptic meningitis. HSV-2 DNA detected in CSF. Patient completed Acyclovir course following ID recommendation. 2 nights ago, patient noted generalized joint achiness. No chest pain, no SOB, no cough. No rashes noted. No known sick contacts. 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 Patient woke up yesterday morning with a pounding headache. Worsening symptoms and some neck pain throughout the day. Patient had to go home from work. Temperature elevation of 103 at home last night. Dizziness described as lightheadedness. No ear discharge. No recent genital HSV attacks. IV ceftriaxone administered at the ER after LP done. 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 NAD, on RA. HEENT: No pallor, no icterus. Pupils equal, round and reactive to light. Oral mucosa moist. NECK: No JVD, no neck masses. HEART: S1 and S2 heard. Regular rate and rhythm. No murmur, no gallop. RESPIRATORY SYSTEM: Normal AP diameter. No accessory muscle use. No wheezing, no crackles. ABDOMEN: Soft, bowel sounds present, nontender, no distention. CENTRAL NERVOUS SYSTEM: No facial droop. Speech is clear. Obeys simple commands. Moves extremities. EXTREMITIES: No edema, no erythema seen. 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 He was managed for the following: Recurrent HSV meningitis:LP done before Rocephin administration in the ED which came back positive for HSV-2. Follow-up on the culture results - negative. Patient is started on acyclovir 02/10, reports improving symptoms. Has significant improvement in his headache per patient. Has been using less and less pain medications. Can use [id number] Tylenol or ibuprofen for headache. Reached out to ID, discharging patient on valacyclovir 1 g 3 times a day to complete 10-day course. DVT prophylaxis:Lovenox subcu Full code Patient provided with information on viral meningitis. Patient being discharged home with following instruction at the point of discharge: Follow-up with your primary care physician within a week time and likely you will need labs CBC/CMP/magnesium/phosphorus. Your various serological tests on the blood and on CSF are pending, coordinate with your PCP office for the final results on them during your next PCP visit within a week time. You are being discharged on valacyclovir 1 g 3 times daily for 8 more days to complete the course. For your headache, you can use [id number] Tylenol for mild pain. For moderate pain you can use ibuprofen 200 mg tablet up to 3-4 times a day, take it with meals. If persistent moderate to severe pain, contact PCP office or emergency. Take your medications as prescribed. Please make sure that you are able to get your medications today by calling your pharmacy before you leave the hospital so that your treatment continuity is not broken. Home Health Attestation I certify that this patient is under my care and that I, or a physicians assistant manager bilingual working with me, had a face to-face encounter that meets the home health [id number] encounter requirements with this patient. The encounter with the patient was in whole, or in part, for the following medical condition, which is the primary reason for home health care (list medical condition): I certify that, based on my findings, the following services are medically necessary home health services: My clinical findings support the need for the above services because: Further, I certify that my clinical findings support that this patient is homebound (i.e. absences from home require considerable and taxing effort and are for medical reasons or scientology services or infrequently or of short duration when for other reasons) because: Certification for Home Health Services: Based on the above findings, I certify that this patient is confined to the home and needs intermittent prison care, physical therapy and/or speech therapy or continues to need occupational therapy. The patient is under my care, and I have initiated the establishment of the plan of care. This patient will be followed by a physician who will periodically review the plan of care. Total Time Total Time Spent Total Time Spent (In Minutes): 45 Discharge Plan Discharge Items Patient Disposition: Home - Self-Care Reason For Visit: SEPSIS Discharge Diagnosis: Recurrent HSV meningitis Activity: Resume your previous activity Non-emergency contact: Primary Care Provider Call non-emergency contact if: you have any medication questions, your symptoms worsen and your temperature is above 101 Follow-up/Referrals: Sivakumar Obrien, [Primary Care Provider] - Diet: Regular Addtl Attending Provider Instructions: Follow-up with your primary care physician within a week time and likely you will need labs CBC/CMP/magnesium/phosphorus. Your various serological tests on the blood and on CSF are pending, coordinate with your PCP office for the final results on them during your next PCP visit within a week time. You are being discharged on valacyclovir 1 g 3 times daily for 8 more days to complete the course. For your headache, you can use [id number] Tylenol for mild pain. For moderate pain you can use ibuprofen 200 mg tablet up to 3-4 times a day, take it with meals. If persistent moderate to severe pain, contact PCP office or emergency. Take your medications as prescribed. Please make sure that you are able to get your medications today by calling your pharmacy before you leave the hospital so that your treatment continuity is not broken. Pending Studies at Discharge: Yes Stand-Alone Forms: [employer], Work/School Release, Smoking Cessation Medications and DC Order Prescriptions: New valacyclovir 1 gram tablet 1,000 mg PO Q8H 8 Days Qty: 24 0RF No Action No Known Home Medications Discharge Orders: Discharge Order (Routine); Ordered 02/13/23 Ordered By: Gage Jesus Admission Data Admit Date/Time: 02/10/23 03:03 Attending Provider: Gage Jesus Admit Provider: Robert Albert Primary Care Provider: Sivakumar Obrien Other Providers: Robert Albert ; Toño Robert ; Chon Lorenzo ; Jalen Cancino I. ; Luther Goodson II ; Brisa Crane ; Polo Mitchell ; Austyn Hutton ; Mehdi Lamar
[2023-02-14 08:57] LABS: Babesia microti DNA Not Detected (Not Detected)
[2023-02-15 02:47] LABS: HSV Type 1 DNA Not Detected (Not Detected); HSV Type 1&2 DNA Source CSF; HSV Type 2 DNA Detected (Not Detected)
== END 2023-02-13 14:44 | disposition home or self-care (01) | DRG 76 ==
LOC: ED 20:43 → EDINP 02-10 03:03 → 2N 02-10 11:37